=== PATIENT | female | born 1935 | race Caucasian/White ===

== ENCOUNTER → 2016-10-15 | Outpatient (CLI) | payer OTHER ==
[2016-04-30 15:01] VITALS: BP 146/77
[~2016-10-15] MED LIST: ATOR10TA60 PO; HYDR12.53 PO; IBUP100O7 PO; LEVO88TA4 PO; METH-38 PO; OXYC1TAB7 PO; VITA10004 PO
--- NOTE | 2016-10-15 15:58 | KCIC ---
PROCEDURE Lumbar spine, three views. HISTORY Pain. FINDINGS Frontal, lateral and coned sacral views of the lumbar spine are obtained. 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 Based on this numbering system, there is instrumented posterior spinal fusion and laminectomy decompression at L3 through L5. There is grade 1 anterolisthesis of L3 on L4, L4 on L5 and L5 on S1 and retrolisthesis of L2 on L3, stable in appearance. There is degenerative endplate remodeling with disc space narrowing and facet arthropathy predominately at L5-S1. IMPRESSION 1. Instrumented fusion and laminectomy decompression at L3 through L5. 2. Grade 1 anterolisthesis of L3 on L4, L4 on L5 and L5 on S1 and retrolisthesis of L2 on L3, stable in appearance. 3. Multilevel degenerative change, predominately at the lumbosacral junction. Electronically signed by: Bridgett Durand (Oct 15, 2016 15:57:09)
== END | disposition home or self-care (01) ==
LOC: KCIC 10:31
PROVIDERS: ATTEND Neurological Surgery
DX: M47.816 Spondylosis without myelopathy or radiculopathy, lumbar region (principal)
CPT/HCPCS: 72100

== ENCOUNTER → 2017-04-15 | Outpatient (CLI) | payer OTHER ==
[2016-04-30 15:01] VITALS: BP 146/77
[~2017-04-15] MED LIST changes: +IBUP100O24 PO; -IBUP100O7 PO; +VITA100022 PO; -VITA10004 PO
--- NOTE | 2017-04-15 09:48 | KCIC ---
EXAM: Lumbar spine, 3 views. HISTORY: Pain. COMPARISON: 10/15/2016 FINDINGS: Frontal, lateral and coned sacral views lumbar spine are obtained. There is instrumented posterior spinal fusion with laminectomy decompression at L3-L5. There is no evidence of instrumentation loosening. There is stable grade 1 anterolisthesis at all fused levels and lumbosacral junction. There is stable slight retrolisthesis of L2 on L3. There is degenerative endplate remodeling with disc space narrowing and facet arthropathy primarily at the lumbosacral junction. There are cholecystectomy clips. 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 IMPRESSION: 1. Instrumented fusion and laminectomy decompression at L3-L5. 2. Stable grade 1 anterolisthesis of L3 on L4, L4-5 and L5 on S1 an slight retrolisthesis of L2 on L3. 3. Stable degenerative change primarily at the lumbosacral junction. Electronically signed by: Bridgett Durand MD (04/15/2017 9:45 AM) [id number]
== END | disposition home or self-care (01) ==
LOC: KCIC 09:08
PROVIDERS: ATTEND Neurological Surgery
DX: M47.896 Other spondylosis, lumbar region (principal)
CPT/HCPCS: 72100

== ENCOUNTER 2018-07-20 19:09 | Emergency (ER) | payer OTHER ==
[~2018-07-20] VITALS: Ht 144.8 cm; Wt 52.2 kg
[~2018-07-20 19:09] MED LIST changes: -IBUP100O24 PO; +IBUP100O25 PO
[2018-07-20 19:15] VITALS: BP 171/73
--- NOTE | 2018-07-20 20:57 | RAD ---
Two-view right femur dated 07/20/2018. No comparison available. Clinical indication: Pain after fall today. FINDINGS: Two-view right femur show normal bony alignment. No displaced fracture. No acute osseous or articular abnormality. Mild degenerative change at the right hip joint and mild degenerative change of the right knee joint. IMPRESSION: No acute radiographic abnormality. Electronically signed by: Gabriel Villavicencio MD (07/20/2018 8:54 PM) [facility]
[2018-07-20] MEDS ORDERED: HYDR-971 PO (21:08)
--- NOTE | 2018-07-20 21:09 | PHYS DOC ---
Past Medical History Past Medical History: High Cholesterol, Hypertension, Hypothyroid Past Surgical History: Cholecystectomy, Hysterectomy Additional Past Surgical Histo: knee Alcohol Use: None Drug Use: None Adult General Chief Complaint Chief Complaint: MECHANICAL FALL HPI HPI Patient is a 83 year old female who presents with pain to her right femur after she fell today. The patient states she was hurrying to the restroom when her foot slipped. She landed on her right leg. She denies any pain to her hip. She is able to ambulate on that extremity but is using a cane. She denies loss of consciousness or any other injury. Review of Systems Review of Systems Constitutional: Denies fever or chills [] Respiratory: Denies cough or shortness of breath [] Cardiovascular: No additional information not addressed in HPI [] Musculoskeletal: See history of present illness Integument: Denies rash or skin lesions [] Neurologic: Denies headache, focal weakness or sensory changes [] Endocrine: Denies polyuria or polydipsia [] All other systems were reviewed and found to be within normal limits, except as documented in this note. Allergies Allergies Allergies Coded Allergies Type Severity Reaction Last Updated Verified Penicillins Allergy Intermediate 04/27/16 Yes atenolol Allergy Intermediate 04/27/16 Yes sulfamethoxazole Allergy Intermediate 04/27/16 Yes tetracycline Allergy Intermediate 04/27/16 Yes trimethoprim Allergy Intermediate 04/27/16 Yes Physical Exam Physical Exam Constitutional: Well developed, well nourished, no acute distress, non-toxic appearance. [] Cardiovascular:Heart rate regular rhythm, no murmur [] Lungs & Thorax: Bilateral breath sounds clear to auscultation [] Abdomen: Bowel sounds normal, soft, no tenderness, no masses, no pulsatile masses. [] Skin: Warm, dry, no erythema, no rash. [] Back: No tenderness, no CVA tenderness. [] Extremities: tenderness right mid femur with palpation, no cyanosis, no clubbing, ROM intact, no edema, pulses and sensation are intact distal to injury. [] Neurologic: Alert and oriented X 3, normal motor function, normal sensory function, no focal deficits noted. [] Psychologic: Affect normal, judgement normal, mood normal. [] Current Patient Data Vital Signs Vital Signs Date Time Temp Pulse Resp B/P (MAP) Pulse Ox O2 Delivery O2 Flow Rate FiO2 07/20/18 19:15 98.0 66 16 171/73 (105) 97 Room Air 98.0 EKG EKG [] Radiology/Procedures Radiology/Procedures []Signed PATIENT: KEYLA MILLIGAN ACCOUNT: [id number] : 1935 LOCATION: ER AGE: 83 SEX: F EXAM STATUS: REG ER ORD. PHYSICIAN: CHRISTO MANE APRN REASON: fell today PROCEDURE: RIGHT FEMUR XRAY Two-view right femur dated 07/20/2018. No comparison available. Clinical indication: Pain after fall today. FINDINGS: Two-view right femur show normal bony alignment. No displaced fracture. No acute osseous or articular abnormality. Mild degenerative change at the right hip joint and mild degenerative change of the right knee joint. IMPRESSION: No acute radiographic abnormality. Electronically signed by: Gabriel Villavicencio MD (07/20/2018 8:54 PM) [facility] DICTATED and SIGNED BY: GABRIEL VILLAVICENCIO MD DATE: 07/20/182052 Course & Med Decision Making Course & Med Decision Making Pertinent Labs and Imaging studies reviewed. (See chart for details) [] Dragon Disclaimer Dragon Disclaimer This electronic medical record was generated, in whole or in part, using a voice recognition dictation system. Departure Departure Impression: Primary Impression: Contusion Disposition: 01 HOME, SELF-CARE Condition: STABLE Referrals: VAISHALI ELLIOTT MD (PCP) Patient Instructions: Contusion Additional Instructions: Take the medication as directed. Follow-up with your primary care provider in 4 days if not improving or return to the emergency department if worsening. Do not drive or operate heavy machinery while taking the pain medication. Scripts Hydrocodone/Apap 5-325 (NORCO 5-325 TABLET) 1 Each Tablet 1 TAB PO PRN Q6HRS PRN for PAIN, #10 TAB 0 Refills Prov: CHRISTO MANE APRN 07/20/18 CHRISTO MANE APRN Jul 20, 2018 21:09
== END 2018-07-20 21:15 | disposition home or self-care (01) ==
LOC: ER 19:09
DX: S70.11XA Contusion of right thigh, initial encounter (principal); E78.00 Pure hypercholesterolemia, unspecified; I10 Essential (primary) hypertension; E03.9 Hypothyroidism, unspecified; Z90.49 Acquired absence of other specified parts of digestive tract; Z90.710 Acquired absence of both cervix and uterus; Z88.0 Allergy status to penicillin; Z88.1 Allergy status to other antibiotic agents; Z88.2 Allergy status to sulfonamides; Z88.8 Allergy status to other drugs, medicaments and biological substances; W01.0XXA Fall on same level from slipping, tripping and stumbling without subsequent striking against object, initial encounter; Y93.89 Activity, other specified; Y92.89 Other specified places as the place of occurrence of the external cause; Y99.8 Other external cause status
CPT/HCPCS: 73552; 99284

== ENCOUNTER → 2020-12-18 | Outpatient (CLI) | payer MEDICARE ==
[~2020-12-18] MED LIST changes: +ASCO500C9 PO; +CALC500T30 PO; +FERR-36 PO; +HYDR-3164 PO; -HYDR12.53 PO; +HYDR12.575 PO; +OMEG-117 PO; +POTA10TA12 PO; +vitamin d
--- NOTE | 2020-12-18 12:53 | PDOC1 ---
INITIAL PAIN CONSULT DATE OF SERVICE: DOS: DATE: 12/18/20 TIME: 12:47 CHIEF COMPLAINT: Chief Complaint: Low back and right lower extremity pain HISTORY OF PRESENT ILLNESS: 85-year-old female presents history of pain low back right lower extremity for about a year and a half status post a fall where she landed on her right side and has had pain since that time in the low back right lower extremity posterior gluteus lateral thigh anterior thigh medial thigh and into the right medial knee. Patient reports no pain on the left side. Patient reports she has been suffering with it over the past year and a half uses a cane when she walks and has it with her today otherwise has had no real treatment she is done some physical therapy in the past is currently doing exercise therapy on her own and some exercises at her primary care physician and given her which does help but only minimally patient is taking Tylenol [id number] which is not been helpful she is tried ibuprofen but upsets her stomach. Patient reports the pain is throbbing with numbness and in the anterior thigh medial thigh intermittent intensity worse with walking standing change positions as a burning quality with changing positions and generally is better with sitting or laying down does not awaken her from sleep at night does not affect her bowel bladder control but does affect her ability to walk again she is using a walker and/or cane has her cane with her today. Patient reports that when she is walking for about 5 to 10 minutes the pain becomes unbearable she sits down and waits for 2 to 3 minutes the pain is almost completely gone. Patient did have some MRI scan of the lumbar spine which is dated January 2016 showing severe spinal stenosis L3-4 with moderate spinal stenosis L4-5 previous surgery with instrumentation rods and screws from L3-L5. Patient reports no loss of motor function with significant fatigability with the right lower extremity becoming more difficult to walk as her right leg is becoming more tired when her left leg is not. PAST MEDICAL HISTORY: PMH: Hypertension, arthritis PREVIOUS SURGERIES: Past Surgical Hx: Lumbar fusion with instrumentation, hysterectomy, ganglionectomy, meniscectomy, right breast biopsy, cholecystectomy, cataract extractions CURRENT MEDICATIONS: Current Meds: Active Scripts Medications Dose Route/Sig Max Daily Dose Days Date Category Iron (Ferrous Sulfate) 325 Mg Tablet 325 Mg PO DAILY 12/18/20 Reported Fish Oil 1,200 mg Softgel ([place]-3/Dha/Epa/Fish Oil) 1 Each Capsule. 1 Cap PO BID 30 12/18/20 Reported [vitamin d] 25 Units 12/18/20 Reported Vitamin C (Ascorbic Acid) 500 Mg Capsule 1,000 Mg PO DAILY 12/18/20 Reported Calcium (Calcium Carbonate) 500 Mg Tablet 1,200 Mg PO DAILY 12/18/20 Reported Potassium Chloride (Potassium Chloride) 10 Meq Tab.sr.24h 10 Meq PO DAILY 12/18/20 Reported Vitamin E (Vitamin E Acetate) 1,000 Unit Capsule 1,000 Unit PO DAILY 04/06/16 Reported Levothyroxine Sodium 88 Mcg Tablet 1 Tab PO DAILY 04/06/16 Reported Atorvastatin Calcium 10 Mg Tablet 10 Mg PO EVERY OTHER NITE 04/06/16 Reported Hydrochlorothiazide Capsule (Hydrochlorothiazide) 12.5 Mg Capsule 12.5 Mg PO DAILY 04/06/16 Reported ALLERGIES; Allergies: Coded Allergies: Penicillins (Verified Allergy, Intermediate, 04/27/16) atenolol (Verified Allergy, Intermediate, 04/27/16) sulfamethoxazole (Verified Allergy, Intermediate, 04/27/16) tetracycline (Verified Allergy, Intermediate, 04/27/16) trimethoprim (Verified Allergy, Intermediate, 04/27/16) FAMILY HISTORY: Family Hx: No major medical problems or conditions that she is aware of. SOCIAL HISTORY: Social Hx: Patient is under alcohol does not smoke or use any illegal illicit recreational drugs is and lives locally in [facility] and is currently retired. REVIEW OF SYSTEMS: ROS: Positive for those items mentioned in history of present illness, all systems a re reviewed, otherwise negative ,and are complete full and well-documented on patient's chart. PHYSICAL EXAM: VS: Blood pressure is 139/91 pulse 98 respirations 18 temperature 98.0 obese Fahrenheit height is 4 feet 8 inches weight is 129 pounds PE: PHYSICAL EXAMINATION: GENERAL: The patient is awake, alert, oriented, appropriate, very pleasant demeanor HEENT: Shows normocephalic, atraumatic. Extraocular movements are intact and symmetrical. Oral cavity: Mucous membranes moist and pink. NECK: Shows anterior throat supple without palpable lymphadenopathy noted. Swallow reflex symmetrical. CHEST: Shows normal on inspection. Breath sounds are clear bilaterally, distant but no rales or rhonchi or wheezes. HEART: Shows S1, S2 clear. No murmurs auscultated. ABDOMEN: Soft, nontender, nondistended, obese. No palpable organomegaly is noted. No rebound or guarding demonstrated. BACK: Shows spine grossly in the midline. Normal-appearing cervical lordotic curvature. There is slightly increased thoracic kyphosis, some minor flattening of the lumbar lordotic curvature. Lumbar paraspinous muscles show symmetrical on inspection, on palpation shows some moderate tenderness diffusely throughout the upper, middle and lower distribution of the paraspinous muscles bilaterally and also into the lower thoracic paraspinous musculature, firm and tender, but without specific trigger points, without radiation of pain. The patient has good rotational motion of the lumbar spine, both laterally as well as extension and flexion without significant difficulty. No tenderness over the spinous processes, sacrum or sacroiliac regions. EXTREMITIES: Lower extremities show deep tendon reflexes 1+ in the patellar and tendo calcaneus tendons. Motor exam is 4 on a scale of 5 with right dorsiflexion, extension, quadriceps and hamstring flexion and 5/5 on the left. Peripheral pulses are 1+ posterior tibial. No peripheral edema is noted bilaterally. Lower extremities are warm and dry to touch, equal in color and appearance. Straight leg raise noted to be positive on the right about 40 degrees, left side is negative. Gaenslen's and Hugo's maneuvers are negative bilaterally as well. The patient is able to stand, stand on her toes but has difficulty putting all of her weight on her right leg as she loses balance quickly. Patient is walking with a slight favoring gait does appear to favor the right lower extremity using a cane in her left hand. SKIN: Shows warm and dry, good turgor. No edema. No sores, rashes or bruising throughout. IMPRESSION: Impression: 85-year-old female with approximate 1-1/2-year history of status post fall with pain low back right lower extremity radicular fashion following an L3-4 dermatomal distribution and L4-5 dermatomal distribution. MRI scan lumbar spine as noted Arthritis Hypertension Plan: Options were discussed with the patient including conservative medical management continued physical therapy interventional techniques. Patient currently doing physical therapy exercises on her own and has had medications without significant improvement she would like to pursue interventional techniques. We discussed a lumbar epidural steroid injection using description as well as anatomical models described procedure. We will wait for preauthorization with insurance provider once this is obtained to have her return for a translaminar approach lumbar epidural steroid injection at the L3-4 level. In the meantime patient will continue with stretching strength exercises also oral Tylenol as currently. MACI MILLIGAN MD Dec 18, 2020 12:53
== END | disposition home or self-care (01) ==
LOC: PNCL 09:24
PROVIDERS: ATTEND Anesthesiology
DX: M54.5 Low back pain (principal); M79.604 Pain in right leg; I10 Essential (primary) hypertension; M19.90 Unspecified osteoarthritis, unspecified site; E78.00 Pure hypercholesterolemia, unspecified; Z90.49 Acquired absence of other specified parts of digestive tract; Z90.710 Acquired absence of both cervix and uterus; Z98.890 Other specified postprocedural states; Z88.0 Allergy status to penicillin; Z88.1 Allergy status to other antibiotic agents; Z88.2 Allergy status to sulfonamides; Z88.8 Allergy status to other drugs, medicaments and biological substances; Z79.899 Other long term (current) drug therapy
CPT/HCPCS: G0463

== ENCOUNTER → 2021-01-01 | Outpatient (CLI) | payer MEDICARE ==
[~2021-01-01] MED LIST changes: +IOHEXOL 180 MG/ML 10 ML VIAL. ONE; +methylPREDNISolone ACETATE 40 MG/ML VIAL. ONE; +methylPREDNISolone ACETATE 80 MG/ML VIAL. ONE
--- NOTE | 2021-01-01 11:09 | PDOC ---
Progress Note - Pain Clinic Date of Service: DOS: DATE: 01/01/21 TIME: 11:05 Diagnosis: Dx: Lumbar radiculopathy with lumbar degenerative disease lumbar spinal stenosis and post lumbar laminectomy syndrome History or Present Illness: HPI: 85-year-old female returns in follow-up status post evaluation and preauthorization for lumbar epidural steroid injection. Patient has obtained authorization and would like to proceed. Patient returns and reports pain in the low back and right lower extremity as it was previously posterior gluteus posterior lateral thigh anterior thigh anteromedial thigh groin and medial anterior thigh as well with a burning sensation patient describes as sharp and aching tingling at times unbearable at times with walking patient reports he is unable to go into the store and get a gallon of milk and come back to the register before she has to sit down because the pain is so severe. Patient reports no pain on the left side patient rates her pain is 8 on scale 10 is worse over the past week 8 on average 3 its least is an 8 today. Patient reports no new motor or sensory deficits no bowel or bladder incontinence patient reports sitting down relieves the pain within just a few minutes. Physical Exam: VS: Blood pressure is 146/70 pulse 61 respirations 18 temperature 98 Fahrenheit height is 4 foot 8 inches weight is 124 pounds PE: PHYSICAL EXAMINATION: GENERAL: The patient is awake, alert, oriented, appropriate, very pleasant demeanor HEENT: Shows normocephalic, atraumatic. Extraocular movements are intact and symmetrical. Oral cavity: Mucous membranes moist and pink. NECK: Shows anterior throat supple without palpable lymphadenopathy noted. Swallow reflex symmetrical. CHEST: Shows normal on inspection. Breath sounds are clear bilaterally. HEART: Shows S1, S2 clear. No murmurs auscultated. ABDOMEN: Soft, nontender, nondistended. No palpable organomegaly is noted. No rebound or guarding demonstrated. BACK: Shows spine grossly in the midline. Normal-appearing cervical lordotic curvature. There is slightly increased thoracic kyphosis, some minor flattening of the lumbar lordotic curvature. Well-healed surgical scar in the midline. Lumbar paraspinous muscles show symmetrical on inspection, on palpation shows some moderate tenderness diffusely throughout the upper, middle and lower distribution of the paraspinous muscles, but without specific trigger points, without radiation of pain. The patient has good rotational motion of the lumbar spine, both laterally as well as extension and flexion without significant difficulty. No tenderness over the spinous processes, sacrum or sacroiliac regions. EXTREMITIES: Lower extremities show deep tendon reflexes 1+ in the patellar and tendo calcaneus tendons. Motor exam is 4 on a scale of 5 with right dorsiflexion, extension, quadriceps and hamstring flexion and 5/5 on the left. Peripheral pulses are 1+ posterior tibial. No peripheral edema is noted bilaterally. Lower extremities are warm and dry to touch, equal in color and appearance. SKIN: Shows warm and dry, good turgor. No edema. No sores, rashes or bruising throughout. Procedure: Procedure: Options were discussed with the patient. Patient chart reviews her current medication regimen updated current review of systems updated today as well. We will proceed with a lumbar epidural steroid injection stable fluoroscopic guidance. Risks were discussed including but not limited to: Bleeding, infection, possibility of epidural hematoma and subsequent neurological compromise, dural puncture, headaches, spinal cord and/or nerve damage, side effects of steroid medication, and poor results regarding pain control. Patient understands and wished to proceed. Patient will return to the clinic in approximate 2 weeks for follow-up, was counseled as return appointment activity level and side effects to be aware of. Medication Injected: Med Injected: Procedure is lumbar epidural steroid injection under local anesthetic using sterile prep and drape at the L2-3 level using C-arm fluoroscopic guidance in both AP and lateral views medications injected is 120 mg Depo-Medrol + 10 mL preservative-free normal saline and 2 mL contrast- condition at discharge is stable patient tolerated procedure well had no complications. Condition at Discharge: Condition at Discharge: Condition at discharge stable, patient already procedure well and had no complications. MACI MILLIGAN MD Jan 01, 2021 11:08
--- NOTE | 2021-01-01 11:09 | PDOC4 ---
PROCEDURE Procedure Patient was consented for lumbar epidural steroid injection. Risks were dis cussed including but not limited to: Bleeding, infection, possibility of epidural hematoma and subsequent neurological compromise, dural puncture, headaches, spinal cord and/or nerve damage, side effects of steroid medication, and poor results regarding pain control. Patient understands and wished to proceed. Procedure is lumbar epidural steroid injection under local anesthetic using sterile prep and drape at the L2-3 level using C-arm fluoroscopic guidance in both AP and lateral views medications injected is 120 mg Depo-Medrol + 10 mL preservative-free normal saline and 2 mL contrast- condition at discharge is stable patient tolerated procedure well had no complications. MACI MILLIGAN MD Jan 01, 2021 11:09
== END | disposition home or self-care (01) ==
LOC: PNCL 10:00
PROVIDERS: ATTEND Anesthesiology
DX: M51.16 Intervertebral disc disorders with radiculopathy, lumbar region (principal); M48.061 Spinal stenosis, lumbar region without neurogenic claudication; M96.1 Postlaminectomy syndrome, not elsewhere classified; I10 Essential (primary) hypertension; E78.00 Pure hypercholesterolemia, unspecified; M19.90 Unspecified osteoarthritis, unspecified site; Z90.49 Acquired absence of other specified parts of digestive tract; Z90.710 Acquired absence of both cervix and uterus; Z98.890 Other specified postprocedural states; Z79.899 Other long term (current) drug therapy; Z88.0 Allergy status to penicillin; Z88.1 Allergy status to other antibiotic agents; Z88.8 Allergy status to other drugs, medicaments and biological substances
CPT/HCPCS: 62323; J1030; J1040; Q9965

== ENCOUNTER → 2021-05-15 | Outpatient (CLI) | payer MEDICARE ==
[~2021-05-15] MED LIST changes: +IBUP-1739 PO; -IBUP100O25 PO; -IOHEXOL 180 MG/ML 10 ML VIAL. ONE; -methylPREDNISolone ACETATE 40 MG/ML VIAL. ONE; -methylPREDNISolone ACETATE 80 MG/ML VIAL. ONE
--- NOTE | 2021-05-15 14:50 | KCIC ---
MRI of the lumbar spine without contrast 05/15/2021 CLINICAL HISTORY: Low back pain which radiates down the right thigh. TECHNIQUE: Unenhanced T1-weighted and T2-weighted sagittal and axial and inversion recovery sagittal images of the lumbar spine were obtained. FINDINGS: Comparison study is dated 01/30/2016. Additional comparison is made to a CT scan of the lumb ar spine dated 02/16/2016. Mild S-shaped curvature of the thoracolumbar spine is seen. Mild to moderate retrolisthesis of L2 in relation to L3 is seen. Mild anterolisthesis of L5 in relation to S1 is noted. The patient is post la minectomy and posterolateral fusion using pedicle screws and stabilizing rods at L3-4 and L4-5. An ov al-shaped fluid collection is seen within the laminectomy site which measures 2.2 cm in size. This li kvng represents a seroma. There is no associated mass effect. Degenerative signal changes and varying loss of height are seen involving all of the disks of the lumbar spine. Degenerative signal changes are seen within the marrow surrounding these discs. The conus medullaris is normal morphology, positi on, and signal characteristics. At the L1-2 disc space there is a mild generalized disc bulge. This is eccentric to the left. Degener ative changes are seen involving the facet joints bilaterally. There is mild ligamentum flavum hypert rophy bilaterally. These findings when combined do not result in significant central spinal canal or neural foraminal stenosis. At the L2-3 disc space there is a moderate generalized disc bulge. Degenerative changes are seen invo lving the facet joints bilaterally. There is moderate ligamentum flavum hypertrophy bilaterally. Thes e findings when combined result in moderate to severe central spinal canal stenosis. Moderate to khadijah re right greater than left neural foraminal stenosis is seen. At the L3-4 disc space degenerative changes are seen involving the facet joints bilaterally. There is a small facet joint effusion. These findings do not result in significant central spinal canal steno sis. Mild right neural foraminal stenosis is seen. The left neural foramen is patent. At the L4-5 disc space there is a mild generalized disc bulge. Degenerative changes are seen involvin g the facet joints bilaterally. These findings do not result in significant central spinal canal sten osis. No neural foraminal stenosis is seen. At the L5-S1 disc space there is a mild to moderate generalized disc bulge. Degenerative changes are seen involving the facet joints bilaterally. These findings do not result in significant central spin al canal stenosis. Mild bilateral neural foraminal stenosis is seen. IMPRESSION: 1. Post laminectomy and fusion at L3-4 and L4-5. 2. The changes of degenerative disc disease are seen throughout the lumbar spine. These findings resu lts in moderate to severe central spinal canal stenosis at L2-3. Moderate to severe right greater paulette n left neural foraminal stenosis is seen at L2-3. Mild right neural foraminal stenosis at L3-4. Mild bilateral neural foraminal stenosis is seen at L5-S1. Electronically signed by: Melvin Garcia MD (05/15/2021 2:48 PM) [id number]
== END ==
LOC: KCIC MRI 12:21
PROVIDERS: ATTEND Family Medicine
DX: M51.16 Intervertebral disc disorders with radiculopathy, lumbar region (principal); M51.27 Other intervertebral disc displacement, lumbosacral region; M48.07 Spinal stenosis, lumbosacral region; M43.16 Spondylolisthesis, lumbar region; M43.8X5 Other specified deforming dorsopathies, thoracolumbar region; Z98.1 Arthrodesis status
CPT/HCPCS: 72148

== ENCOUNTER → 2021-05-19 | Outpatient (CLI) | payer MEDICARE ==
--- NOTE | 2021-05-19 16:28 | PDOC ---
Progress Note - Pain Clinic Date of Service: DOS: DATE: 05/19/21 TIME: 16:23 Diagnosis: Dx: Lumbar radiculopathy with lumbar degenerative disc disease lumbar spinal stenosis lumbar postlaminectomy syndrome History or Present Illness: HPI: 86-year-old female returns last seen October 03, 2020 and lumbar epidural steroid injection with about 75% improvement in the low back and right lower extremity pain especially in the right thigh. Patient reports she is doing much better distance walking doing household activities working with greater ease and comfort travel with greater ease and comfort sleeping much better now still sleeping better and says the pain is now described as in the low back rating the right anterior thigh medial thigh into the medial lower leg as well as across the low back on the right side patient reports is a 9 on scale 10 is average 10 is worst and is a 5 its least and is a 6 today. Patient scribes as burning on and off in intensity aching sharp shooting radiating can be constant with walking and standing patient reports after walking about 10 minutes she has to sit down and the pain will relieve about after 5 minutes of sitting. Patient reports no new bowel or bladder incontinence. Patient have new MRI scan dated May 15, 2021 showing post laminectomy and fusion at L3-4 and L4-5 with changes of degenerative disc disease throughout the lumbar spine resulting moderate severe central spinal canal stenosis at L2-3 moderate to severe right greater than left neuroforaminal stenosis at L2-3 and mild right neuroforaminal stenosis at L3-4 with mild bilateral neuroforaminal stenosis at L5-S1. Physical Exam: VS: Blood pressure is 140/75 pulse 73 respirations are 16 temperature is 98.2 F weight is 123 pounds PE: PHYSICAL EXAMINATION: GENERAL: The patient is awake, alert, oriented, appropriate, very pleasant in demeanor HEENT: Shows normocephalic, atraumatic. Extraocular movements are intact and symmetrical. Oral cavity: Mucous membranes moist and pink. NECK: Shows anterior throat supple without palpable lymphadenopathy noted. Swallow reflex symmetrical. CHEST: Shows normal on inspection. Breath sounds are clear bilaterally, distant no rales rhonchi or wheezes auscultated. HEART: Shows S1, S2 clear. No murmurs auscultated. ABDOMEN: Soft, nontender, nondistended. No palpable organomegaly is noted. BACK: Shows spine grossly in the midline. Normal-appearing cervical lordotic curvature. There is increased thoracic kyphosis, some flattening of the lumbar lordotic curvature. Lumbar paraspinous muscles show symmetrical on inspection, on palpation shows some moderate tenderness diffusely throughout the upper, middle and lower distribution of the paraspinous muscles, but without specific trigger points, without radiation of pain. The patient has good rotational motion of the lumbar spine, both laterally as well as extension and flexion without significant difficulty. No tenderness over the spinous processes, sacrum or sacroiliac regions. EXTREMITIES: Lower extremities show deep tendon reflexes 1 in the patellar and tendo calcaneus tendons. Motor exam is 4 on a scale of 5 with right dorsiflexion, extension, quadriceps and hamstring flexion and 5/5 on the left. Peripheral pulses are 1 posterior tibial. No peripheral edema is noted bilaterally. Lower extremities are warm and dry to touch, equal in color and appearance. Straight leg raise noted to be positive on the right about 40 degrees, left side is negative. SKIN: Shows warm and dry, good turgor. No edema. No sores, rashes or bruising throughout. Procedure: Procedure: Options discussed with the patient. Patient's old chart was reviewed as her current medication regimen updated current review of systems updated today as well. We will preauthorize patient for a lumbar epidural steroid injection with fluoroscopic guidance. Patient has clinical radiculopathy L2-3 dermatomal distribution on the right with new MRI scan showing significant stenosis on the right at that same level. Patient continue with stretching strength exercise as well as oral analgesics as currently in the meantime. Also will call in a Medrol Dosepak for the patient patient was given instructions well side effects aware with the medication. Once approved, patient will return for lumbar epidural steroid injection translaminar approach at the L2-3 level with fluoroscopic guidance. Medication Injected: Med Injected: None Condition at Discharge: Condition at Discharge: Condition at discharge is stable. MACI MILLIGAN MD May 19, 2021 16:28
== END | disposition home or self-care (01) ==
LOC: PNCL 13:59
PROVIDERS: ATTEND Anesthesiology
DX: M51.16 Intervertebral disc disorders with radiculopathy, lumbar region (principal); M48.061 Spinal stenosis, lumbar region without neurogenic claudication; M96.1 Postlaminectomy syndrome, not elsewhere classified; I10 Essential (primary) hypertension; E78.00 Pure hypercholesterolemia, unspecified; M19.90 Unspecified osteoarthritis, unspecified site; Z90.710 Acquired absence of both cervix and uterus; Z98.890 Other specified postprocedural states; Z79.899 Other long term (current) drug therapy; Z90.49 Acquired absence of other specified parts of digestive tract; Z88.0 Allergy status to penicillin; Z88.1 Allergy status to other antibiotic agents; Z88.2 Allergy status to sulfonamides; Z88.8 Allergy status to other drugs, medicaments and biological substances
CPT/HCPCS: 99212; G0463

== ENCOUNTER → 2021-06-02 | Outpatient (CLI) | payer MEDICARE ==
[~2021-06-02] MED LIST changes: +IOHEXOL 180 MG/ML 10 ML VIAL. ONE; +methylPREDNISolone ACETATE 80 MG/ML VIAL. ONE
--- NOTE | 2021-06-02 14:07 | PDOC ---
Progress Note - Pain Clinic Date of Service: DOS: DATE: 06/02/21 TIME: 14:04 Diagnosis: Dx: Lumbar radiculopathy with lumbar degenerative disease lumbar spinal stenosis with lumbar postlaminectomy syndrome History or Present Illness: HPI: 86-year-old female returns for follow-up status post lumbar epidural steroid injection x1 January 01, 2021 patient reports the pain is returned now is now getting into the left lower extremity as well which is a new pain for her is usually just on the right side and is more on the right side but now from the leg into the back bilaterally with longstanding radiates to the left leg as well as the right leg mostly still on the right leg patient reports otherwise no new deficits no bowel or bladder incontinence she reports is better with sitting or laying down generally does not awaken her from sleep at night worse with walking standing or standing for more than 10 to 15 minutes is most noticeable patient rates as a 9 on scale 10 is worse over the past week 9 on average 6 at its least and is a 6 today. Physical Exam: VS: Blood pressure is 142/64 pulse 67 respirations 16 temperature 97.8 F weight is 122 pounds PE: PHYSICAL EXAMINATION: GENERAL: The patient is awake, alert, oriented, appropriate, very pleasant in demeanor HEENT: Shows normocephalic, atraumatic. Extraocular movements are intact and symmetrical. Oral cavity: Mucous membranes moist and pink. NECK: Shows anterior throat supple without palpable lymphadenopathy noted. Swallow reflex symmetrical. CHEST: Shows normal on inspection. Breath sounds are clear bilaterally, distant but no rales or rhonchi. HEART: Shows S1, S2 clear. No murmurs auscultated. ABDOMEN: Soft, nontender, nondistended. No palpable organomegaly is noted. BACK: Shows spine grossly in the midline. Normal-appearing cervical lordotic curvature. There is slightly increased thoracic kyphosis, some flattening of the lumbar lordotic curvature, with well-healed midline surgical scar. Lumbar paraspinous muscles show symmetrical on inspection, on palpation shows some moderate tenderness diffusely throughout the upper, middle and lower distr ibution of the paraspinous muscles, but without specific trigger points, without radiation of pain. The patient has good rotational motion of the lumbar spine, both laterally as well as extension and flexion without significant difficulty. EXTREMITIES: Lower extremities show deep tendon reflexes 1 in the patellar and tendo calcaneus tendons. Motor exam is 4 on a scale of 5 with right dorsiflexion, extension, quadriceps and hamstring flexion and 5/5 on the left. Peripheral pulses are 1+ posterior tibial. No peripheral edema is noted bilaterally. Lower extremities are warm and dry to touch, equal in color and appearance. SKIN: Shows warm and dry, good turgor. No edema. No sores, rashes or bruising throughout. Procedure: Procedure: Options discussed with patient. Patient chart was reviewed as her current medication regimen updated current review systems updated today as well. We will proceed with a lumbar epidural steroid injection today with fluoroscopic guidance. Risks were discussed including but not limited to: Bleeding, infection, possibility of epidural hematoma and subsequent neurological compromise, dural puncture, headaches, spinal cord and/or nerve damage, side effects of steroid medication, and poor results regarding pain control. Patient understands and wished to proceed. Patient will return to the clinic in approximate 2 weeks for follow-up, was counseled as return appointment, typical, and side effects be aware of. Medication Injected: Med Injected: Procedure is lumbar epidural steroid injection under local anesthetic using sterile prep and drape at the L2-3 level using C-arm fluoroscopic guidance in both AP and lateral views medications injected is 120 mg Depo-Medrol +10mL preservative-free normal saline and 2 mL contrast- condition at discharge is stable patient tolerated procedure well had no complications. Condition at Discharge: Condition at Discharge: Condition at discharge stable, pain tolerated procedure well and had no complications. MACI MILLIGAN MD Jun 02, 2021 14:07
--- NOTE | 2021-06-02 14:08 | PDOC4 ---
Procedure Note: ICD 10 Code: ICD 10 Code: M54.16 M 48.06 M51.39 M 96.1 Procedure Note: Patient was consented for lumbar epidural steroid injection with fluoroscopic guidance. Risks were discussed including but not limited to: Bleeding, infection, possibility of epidural hematoma and subsequent neurological compromise, dural puncture, headaches, spinal cord and/or nerve damage, side effects of steroid medication, and poor results regarding pain control. Patient understands and wished to proceed. Procedure is lumbar epidural steroid injection under local anesthetic using sterile prep and drape at the L2-3 level using C-arm fluoroscopic guidance in both AP and lateral views medications injected is 120 mg Depo-Medrol +10mL preservative-free normal saline and 2 mL contrast- condition at discharge is stable patient tolerated procedure well had no complications. MACI MILLIGAN MD Jun 02, 2021 14:08
== END | disposition home or self-care (01) ==
LOC: PNCL 13:13
PROVIDERS: ATTEND Anesthesiology
DX: M51.16 Intervertebral disc disorders with radiculopathy, lumbar region (principal); M48.061 Spinal stenosis, lumbar region without neurogenic claudication; M96.1 Postlaminectomy syndrome, not elsewhere classified; I10 Essential (primary) hypertension; E78.00 Pure hypercholesterolemia, unspecified; M19.90 Unspecified osteoarthritis, unspecified site; Z90.49 Acquired absence of other specified parts of digestive tract; Z90.710 Acquired absence of both cervix and uterus; Z98.890 Other specified postprocedural states; Z79.899 Other long term (current) drug therapy; Z88.0 Allergy status to penicillin; Z88.1 Allergy status to other antibiotic agents; Z88.8 Allergy status to other drugs, medicaments and biological substances
CPT/HCPCS: 62323; J1040; Q9965

== ENCOUNTER → 2021-06-25 | Outpatient (CLI) | payer MEDICARE ==
[~2021-06-25] MED LIST changes: -IOHEXOL 180 MG/ML 10 ML VIAL. ONE; -methylPREDNISolone ACETATE 80 MG/ML VIAL. ONE
--- NOTE | 2021-06-25 15:25 | PDOC ---
Progress Note - Pain Clinic Date of Service: DOS: DATE: 06/25/21 TIME: 15:18 Diagnosis: Dx: Lumbar radiculopathy with lumbar degenerative disc disease lumbar spinal stenosis and lumbar postlaminectomy syndrome History or Present Illness: HPI: 86-year-old female returns for follow-up status post lumbar epidural steroid injection x2. Patient reports about 75% improvement is very pleased with her p rogress she is increasing her activity with greater ease and comfort walking greater distances doing household activities greater ease and comfort travel with greater ease and sleeping much better where does not awaken her from sleep at this time. Patient reports her pain is a 3 on scale 10 is absolute worst average or least is a 3 today patient reports in the right the low back and into the right lower extremity lateral thigh anterior thigh medial thigh medial upper leg and medial knee patient reports it is burning at times and with some numbness quality sensation on the anterior thigh but no weakness no loss of motor function. Patient reports no bowel or bladder incontinence Physical Exam: VS: Blood pressure is 154/76 pulse 61 respirations 18 temperature 97.6 3 Fahrenheit height is 4 feet 8 inches weight is 125 pounds. PE: PHYSICAL EXAMINATION: GENERAL: The patient is awake, alert, oriented, appropriate, very pleasant in demeanor HEENT: Shows normocephalic, atraumatic. Extraocular movements are intact and symmetrical. Oral cavity: Mucous membranes moist and pink. NECK: Shows anterior throat supple without palpable lymphadenopathy noted. CHEST: Shows normal on inspection. Breath sounds are clear bilaterally, no rales rhonchi wheezes auscultated. HEART: Shows S1, S2 clear. No murmurs auscultated. ABDOMEN: Soft, nontender, nondistended, obese. No palpable organomegaly is noted. BACK: Shows spine grossly in the midline. Normal-appearing cervical lordotic curvature. There is increased thoracic kyphosis, some flattening of the lumbar lordotic curvature. Lumbar paraspinous muscles show symmetrical on inspection, on palpation shows some moderate tenderness diffusely throughout the upper, middle and lower distribution of the paraspinous muscles without specific trigger points, without radiation of pain. The patient has good rotational motion of the lumbar spine, both laterally as well as extension and flexion without difficulty. EXTREMITIES: Lower extremities show deep tendon reflexes 1+ in the patellar and tendo calcaneus tendons. Motor exam is 4 on a scale of 5 with right d orsiflexion, extension, quadriceps and hamstring flexion and 5/5 on the left. Peripheral pulses are 1+ posterior tibial. No peripheral edema is noted bilaterally. Lower extremities are warm and dry. SKIN: Shows warm and dry, good turgor. No edema. No sores, rashes or bruising throughout. Procedure: Procedure: Options were discussed with the patient. Patient's old chart was reviewed, as was her current medication regimen updated, and current review of systems updated today as well. Patient will maintain stretching and strength exercises daily, as well as daily walking as tolerated. We will preauthorize her for a lumbar epidural steroid injection she did very well with the pain returning now and radicular fashion in the right L2-3 dermatomal distribution. Once approved, patient will return to clinic for translaminar approach L2-3 level lumbar e pidural steroid injection with fluoroscopic guidance. Medication Injected: Med Injected: None Condition at Discharge: Condition at Discharge: Condition at discharge is stable. MACI MILLIGAN MD Jun 25, 2021 15:24
== END | disposition home or self-care (01) ==
LOC: PNCL 14:18
PROVIDERS: ATTEND Anesthesiology
DX: M51.16 Intervertebral disc disorders with radiculopathy, lumbar region (principal); M48.061 Spinal stenosis, lumbar region without neurogenic claudication; M96.1 Postlaminectomy syndrome, not elsewhere classified; I10 Essential (primary) hypertension; E78.00 Pure hypercholesterolemia, unspecified; M19.90 Unspecified osteoarthritis, unspecified site; Z90.710 Acquired absence of both cervix and uterus; Z98.890 Other specified postprocedural states; Z79.899 Other long term (current) drug therapy; Z88.0 Allergy status to penicillin; Z88.1 Allergy status to other antibiotic agents; Z88.2 Allergy status to sulfonamides; Z88.8 Allergy status to other drugs, medicaments and biological substances
CPT/HCPCS: 99212; G0463